=== PATIENT | female | born 1985 | race Caucasian/White ===

== ENCOUNTER 2023-08-12 22:13 | Inpatient (IN) | payer BC ==
[~2023-08-12] VITALS: Ht 154.9 cm; Wt 76.7 kg
[2023-08-12] MEDS ORDERED: ACETAMINOPHEN 325MG TABLET PO STA (22:37)
[2023-08-12] MEDS ORDERED: CEFTRIAXONE 1GM PREMIX 50 ML IV ONE (22:45)
[2023-08-12] MEDS: SODIUM CHLORIDE 0.9% 1000ML BAG (SEPSIS BOLUS) IV ONE (22:45)
[2023-08-12 23:02] LABS: CLARITY URINE CLOUDY (CLEAR); COLOR URINE YELLOW (YELLOW); GLUCOSE URINE NEGATIVE (NEGATIVE); KETONES URINE NEGATIVE (NEGATIVE); LEUKOCYTE ESTERASE URINE 2+ (NEGATIVE); NITRITE URINE NEGATIVE (NEGATIVE); OCCULT BLOOD URINE 1+ (NEGATIVE); PROTEIN URINE TRACE (NEGATIVE)
[2023-08-12 23:09] LABS: BASOPHILS % 0.4 % (0.0-2.0); EOSINOPHILS % 0.2 % (0.0-5.0); HEMOGLOBIN. 11.2 g/dL (12.0-16.0); LYMPHOCYTES % 9.9 % (20.0-50.0); MEAN CORPUSCULAR HEMOGLOBIN 27.9 pg (28.0-32.0); MEAN CORPUSCULAR HGB CONC 32.9 g/dL (31.0-37.0); MEAN CORPUSCULAR VOLUME 84.8 fL (81.0-99.0); MEAN PLATELET VOLUME 7.3 fl (7.4-10.4); MONOCYTES % 5.2 % (2.0-8.0); NEUTROPHILS % 84.3 % (40.0-76.0); PLATELET 501 x1000/uL (130-400); RED BLOOD CELL COUNT 4.01 mill/uL (4.2-5.4); RED CELL DISTRIBUTION WIDTH 13.8 % (11.6-14.6); WHITE BLOOD COUNT 16.7 x1000/uL (4.5-11.0)
[2023-08-12 23:16] LABS: HCG SCREEN NEGATIVE
[2023-08-12 23:19] LABS: BACTERIA URINE TRACE; RBC URINE 0-2 /hpf (0-2); SQUAMOUS EPITHELIAL CELL URINE 1+ /lpf (RARE/1+); WBC URINE 15-25 /hpf (0-2)
[2023-08-12 23:22] LABS: ALANINE AMINOTRANSFERASE 19 IU/L (10-49); ALBUMIN 4.6 g/dL (3.2-4.8); ASPARTATE AMINOTRANSFERASE 19 IU/L (<34); BILIRUBIN TOTAL 0.3 mg/dL (0.1-1.0); CALCIUM 9.3 mg/dL (8.7-10.4); CARBON DIOXIDE 25 mEq/L (21-32); CHLORIDE 100 mEq/L (98-107); CREATININE 0.8 mg/dL (0.6-1.0); GLUCOSE 114 mg/dL (70-105); POTASSIUM 3.9 mEq/L (3.5-5.1); PROTEIN TOTAL 8.4 g/dL (6.0-8.3); SODIUM 134 mEq/L (136-145); UREA NITROGEN BLOOD 13 mg/dL (9-23)
[2023-08-13] MEDS: CEFTRIAXONE 1GM PREMIX 50 ML IV NR (01:45)
[2023-08-13] MEDS ORDERED: IBUP-2029 MT (02:04)
[2023-08-13] MEDS ORDERED: CEPH500C2 MT (02:04)
[2023-08-13] MEDS: ACETAMINOPHEN 325MG TABLET PO NR (02:48)
[2023-08-13] MEDS: MORPHINE SULFATE 4 MG/ML CPJ (NOT FOR IM USE) IV ONE (10:36)
[2023-08-13] MEDS: ACETAMINOPHEN 325MG TABLET PO ONE (10:36)
[2023-08-13] MEDS ORDERED: MAGNESIUM/ALUMINUM HYDROXIDE/SIMETHICONE 30ML UDC PO PRN (11:30)
[2023-08-13] MEDS ORDERED: IPRATROPIUM/ALBUTEROL 0.5-3(2.5)MG/3ML NEB HHN PRN (11:30)
[2023-08-13] MEDS ORDERED: CLONIDINE 0.1MG TABLET PO PRN (11:30)
[2023-08-13] MEDS ORDERED: GUAIFENESIN 200MG/10ML SUGAR FREE UDC PO PRN (11:30)
[2023-08-13] MEDS ORDERED: ONDANSETRON HCL 4MG/2ML INJ IV PRN (11:30)
[2023-08-13] MEDS: SODIUM CHLORIDE 0.9% 1,000 ML IV SCH (15:09)
[2023-08-13 16:30] VITALS: BP 97/65; PULSE 94; RESP 20; TEMP 101
[2023-08-13] MEDS: ACETAMINOPHEN 325MG TABLET PO PRN (17:18)
[2023-08-13] MEDS: FAMOTIDINE 20MG TABLET PO SCH (17:20)
[2023-08-13 17:48] VITALS: BP 97/65; PULSE 94; RESP 20; TEMP 101.3
[2023-08-13 20:00] VITALS: BP 110/67; PULSE 109; RESP 18; TEMP 101
[2023-08-13 20:29] LABS: HEPATITIS B SURFACE ANTIGEN NEGATIVE (Negative); HEPATITIS C AB NON REACTIVE (Neg) (Negative)
[2023-08-13 22:00] VITALS: TEMP 99.9
[2023-08-13 23:50] VITALS: BP 110/69; PULSE 119; RESP 18; TEMP 104
[2023-08-13] MEDS: CEFTRIAXONE 1,000 MG in DEXTROSE 5% WATER 50 ML IV SCH (23:57)
[2023-08-14 04:00] VITALS: BP 116/65; PULSE 105; RESP 18; TEMP 100
[2023-08-14 04:46] LABS: HEMATOCRIT. 30.7 % (36.0-48.0); HEMOGLOBIN. 10.1 g/dL (12.0-16.0); MEAN CORPUSCULAR HEMOGLOBIN 27.7 pg (28.0-32.0); MEAN CORPUSCULAR HGB CONC 32.9 g/dL (31.0-37.0); MEAN CORPUSCULAR VOLUME 84.2 fL (81.0-99.0); MEAN PLATELET VOLUME 7.4 fl (7.4-10.4); PLATELET 341 x1000/uL (130-400); RED BLOOD CELL COUNT 3.65 mill/uL (4.2-5.4); WHITE BLOOD COUNT 31.8 x1000/uL (4.5-11.0)
[2023-08-14 05:02] LABS: CALCIUM 7.8 mg/dL (8.7-10.4); CARBON DIOXIDE 20 mEq/L (21-32); CHLORIDE 101 mEq/L (98-107); CHOLESTEROL 95 mg/dL (<200); CREATININE 0.6 mg/dL (0.6-1.0); GLUCOSE 92 mg/dL (70-105); HDL CHOLESTEROL 29 mg/dL (>65); LDL CHOLESTEROL 51 mg/dL (5-100); SODIUM 132 mEq/L (136-145); T4 FREE 1.08 ng/dL (0.89-1.76); THYROID STIMULATING HORMONE 1.01 uIU/mL (0.55-4.78); TRIGLYCERIDE 73 mg/dL (0-150); UREA NITROGEN BLOOD 6 mg/dL (9-23)
[2023-08-14 05:11] LABS: DIFFERENTIAL COMMENT 1
[2023-08-14 05:17] LABS: POTASSIUM 2.5 mEq/L (3.5-5.1)
[2023-08-14] MEDS: POTASSIUM CHLORIDE 20MEQ TABLET SR PO NR ×2 (06:23→09:13)
[2023-08-14 06:45] VITALS: TEMP 97.3
[2023-08-14 08:00] VITALS: BP 113/70; PULSE 117; RESP 22; TEMP 98.2
[2023-08-14] MEDS: PIPERACILLIN/TAZO 3.375G/50ML 50 ML IV SCH (09:14)
[2023-08-14] MEDS ORDERED: IOHEXOL-300 100 ML BOTTLE ONE (10:16)
[2023-08-14 12:00] VITALS: BP 128/72; PULSE 129; RESP 21; TEMP 97.4
[2023-08-14 12:52] LABS: CARBON DIOXIDE 22 mEq/L (21-32); CHLORIDE 102 mEq/L (98-107); CREATININE 0.6 mg/dL (0.6-1.0); GLUCOSE 94 mg/dL (70-105); PHOSPHORUS 1.2 mg/dL (2.5-4.9); POTASSIUM 3.4 mEq/L (3.5-5.1); SODIUM 133 mEq/L (136-145); UREA NITROGEN BLOOD 6 mg/dL (9-23)
[2023-08-14 16:00] VITALS: BP 136/72; PULSE 102; RESP 21; TEMP 98.8
[2023-08-14] MEDS: POTASSIUM-SODIUM PHOSPHATE POWDER PACKET PO NR (16:04)
[2023-08-14] MEDS: CEFEPIME 2,000 MG in DEXT 5% WATER 100 ML IV SCH (16:04)
[2023-08-14 17:50] LABS: PLATELET ESTIMATE NORMAL
[2023-08-14 20:00] VITALS: BP 103/61; PULSE 115; RESP 20; TEMP 100.5
[2023-08-14] MEDS: ACETAMINOPHEN 325MG TABLET PO PRN (20:13)
[2023-08-14] MEDS ORDERED: CEFTRIAXONE 1,000 MG in DEXTROSE 5% WATER 50 ML IV SCH (21:00)
[2023-08-15 00:18] VITALS: BP 94/60; PULSE 94; RESP 20; TEMP 100
[2023-08-15 04:00] VITALS: BP 102/61; PULSE 92; RESP 20; TEMP 98.9
[2023-08-15 06:43] LABS: HEMATOCRIT. 29.6 % (36.0-48.0); HEMOGLOBIN. 9.7 g/dL (12.0-16.0); MEAN CORPUSCULAR HEMOGLOBIN 27.6 pg (28.0-32.0); MEAN CORPUSCULAR HGB CONC 32.8 g/dL (31.0-37.0); MEAN CORPUSCULAR VOLUME 84.2 fL (81.0-99.0); MEAN PLATELET VOLUME 7.7 fl (7.4-10.4); PLATELET 339 x1000/uL (130-400); RED BLOOD CELL COUNT 3.51 mill/uL (4.2-5.4); RED CELL DISTRIBUTION WIDTH 13.7 % (11.6-14.6); WHITE BLOOD COUNT 28.5 x1000/uL (4.5-11.0)
[2023-08-15 07:01] LABS: ALANINE AMINOTRANSFERASE 67 IU/L (10-49); ALBUMIN 3.6 g/dL (3.2-4.8); ASPARTATE AMINOTRANSFERASE 52 IU/L (<34); BILIRUBIN TOTAL 0.2 mg/dL (0.1-1.0); CALCIUM 8.5 mg/dL (8.7-10.4); CARBON DIOXIDE 20 mEq/L (21-32); CHLORIDE 102 mEq/L (98-107); CREATININE 0.5 mg/dL (0.6-1.0); GLUCOSE 95 mg/dL (70-105); POTASSIUM 3.2 mEq/L (3.5-5.1); PROTEIN TOTAL 6.4 g/dL (6.0-8.3); SODIUM 133 mEq/L (136-145); UREA NITROGEN BLOOD 7 mg/dL (9-23)
[2023-08-15 07:26] LABS: DIFFERENTIAL COMMENT 1
[2023-08-15 08:00] VITALS: BP 113/74; PULSE 106; RESP 18; TEMP 98.2
[2023-08-15] MEDS: POTASSIUM CHLORIDE 20MEQ TABLET SR PO NR (08:44)
[2023-08-15 09:44] LABS: PHOSPHORUS 1.6 mg/dL (2.5-4.9)
[2023-08-15 12:00] VITALS: BP 105/59; PULSE 99; RESP 18; TEMP 98.4
[2023-08-15] MEDS ORDERED: LIDOCAINE HCL 1% 10 MG/ML 10ML VIAL ONE (12:53)
[2023-08-15] MEDS: POTASSIUM PHOS,M-BASIC-D-BASIC 15 MMOL in DEXT 5% WATER 245 ML IV NR (14:36)
[2023-08-15] MEDS ORDERED: CEFTRIAXONE 2GM/50ML (ADDEASE) 50 ML IV SCH (15:15)
[2023-08-15 16:00] VITALS: BP 104/69; PULSE 90; RESP 18; TEMP 97.6
[2023-08-15] MEDS ORDERED: CEFTRIAXONE 2 G in DEXTROSE 5% WATER 50 ML IV SCH (16:00)
[2023-08-15 16:53] LABS: PLATELET ESTIMATE NORMAL
[2023-08-15] MEDS: CEFTRIAXONE 2 G in DEXTROSE 5% WATER 50 ML IV SCH (17:22)
[2023-08-15 18:32] LABS: PHOSPHORUS 2.1 mg/dL (2.5-4.9); POTASSIUM 3.8 mEq/L (3.5-5.1)
[2023-08-15 20:00] VITALS: BP 110/72; PULSE 97; RESP 17; TEMP 97.5
[2023-08-16] VITALS: BP 112/74; PULSE 107; RESP 17; TEMP 99.3
[2023-08-16] MEDS: ZOLPIDEM TARTRATE 5MG TABLET PO NR (01:59)
[2023-08-16 07:33] LABS: HEMATOCRIT 28.6 % (36.0-48.0); HEMOGLOBIN 9.5 g/dL (12.0-16.0); MEAN CORPUSCULAR HEMOGLOBIN 27.5 pg (28.0-32.0); MEAN CORPUSCULAR HGB CONC 33.3 g/dL (31.0-37.0); MEAN CORPUSCULAR VOLUME 82.6 fL (81.0-99.0); PLATELET 354 x1000/uL (130-400); RED BLOOD CELL COUNT 3.46 mill/uL (4.2-5.4); RED CELL DISTRIBUTION WIDTH 14.6 % (11.6-14.6)
[2023-08-16 07:52] LABS: CALCIUM 8.4 mg/dL (8.7-10.4); CARBON DIOXIDE 23 mEq/L (21-32); CHLORIDE 104 mEq/L (98-107); CREATININE 0.5 mg/dL (0.6-1.0); GLUCOSE 96 mg/dL (70-105); POTASSIUM 3.2 mEq/L (3.5-5.1); SODIUM 136 mEq/L (136-145); UREA NITROGEN BLOOD 7 mg/dL (9-23)
[2023-08-16 08:00] VITALS: BP 108/79; PULSE 94; RESP 18; TEMP 97.7
[2023-08-16 12:00] VITALS: BP 113/75; PULSE 92; RESP 18; TEMP 97.4
[2023-08-16] MEDS ORDERED: CEFT2FRO5 IV (13:53)
[2023-08-16 16:00] VITALS: BP 109/77; PULSE 96; RESP 18; TEMP 98
[2023-08-16 20:00] VITALS: BP 117/82; PULSE 107; RESP 19; TEMP 99.7
[2023-08-16] MEDS: POTASSIUM CHLORIDE 20MEQ TABLET SR PO NR (21:25)
[2023-08-17] VITALS: BP 118/82; PULSE 104; RESP 20; TEMP 98.4
[2023-08-17 04:00] VITALS: BP 109/74; PULSE 103; RESP 20; TEMP 98.5
[2023-08-17 08:00] VITALS: BP 109/75; PULSE 101; RESP 18; TEMP 97.3
[2023-08-17] MEDS: POTASSIUM CHLORIDE 20MEQ TABLET SR PO NR (08:07)
[2023-08-17] MEDS: DOCUSATE SODIUM 100MG CAPSULE PO PRN (08:12)
[2023-08-17 12:45] VITALS: BP 110/73; PULSE 98; RESP 19; TEMP 98.2
[2023-08-17 14:18] VITALS: BP 110/73; PULSE 98; TEMP 97.8; O2SAT 98
== END 2023-08-17 18:19 | disposition home health service (06) | DRG 872 ==
LOC: ER 22:13 → EDBEDREQ 08-13 08:21 → EDBEDREQSVC 08-13 08:21 → 7EST 08-13 08:36 → EDBEDREQSVC 08-13 08:41 → EDBEDREQTM 08-13 08:41 → 7EST 08-13 15:28 → 6WST 08-17 11:58
PROVIDERS: ADMIT Hospitalist; ATTEND Hospitalist
PROC: 02HV33Z Insertion of Infusion Device into Superior Vena Cava, Percutaneous Approach (ICD-10-PCS; principal; 2023-08-15)
PROC: B548ZZA Ultrasonography of Superior Vena Cava, Guidance (ICD-10-PCS; 2023-08-15)
DX: A41.59 Other Gram-negative sepsis (principal); N10 Acute pyelonephritis; E87.1 Hypo-osmolality and hyponatremia; D75.839 Thrombocytosis, unspecified; D64.9 Anemia, unspecified; E87.6 Hypokalemia; B96.1 Klebsiella pneumoniae [K. pneumoniae] as the cause of diseases classified elsewhere; E83.39 Other disorders of phosphorus metabolism; E83.42 Hypomagnesemia; K76.0 Fatty (change of) liver, not elsewhere classified; Z97.5 Presence of (intrauterine) contraceptive device; Z79.899 Other long term (current) drug therapy
CPT/HCPCS: 36415; 36573; 71045; 74177; 76770; 80048; 80053; 80061; 81003; 83605; 83735; 84100; 84132; 84145; 84439; 84443; 84703; 85025; 85027; 86705; 87077; 87186; 87340; 93005; 99291; C1725; J0692; J0696; J2270; J2543; J3490; J7030; J7060; Q9967